=== PATIENT | female | born 1995 | race Caucasian/White ===

== ENCOUNTER 2018-10-16 22:00 | Emergency (ER) | payer OTHER ==
[~2018-10-16] VITALS: Ht 157.5 cm; Wt 63.5 kg
[2018-10-16 22:07] VITALS: BP 120/76
[2018-10-16] MEDS: LIDOCAINE 1% ***ER ONLY *** 10 MG/ML VIAL INJ ONE (23:55)
[2018-10-17] MEDS ORDERED: LIDOCAINE MPF 1% - 5 mL VIAL 5 ML ONE (00:11)
[2018-10-17] MEDS: BACITRACIN OINT 500 UNITS/GM PKT TP ONE (01:02)
[2018-10-17 01:14] VITALS: BP 120/76
== END 2018-10-17 01:14 | disposition home or self-care (01) ==
LOC: MED 22:00
DX: S01.511A Laceration without foreign body of lip, initial encounter (principal); F12.90 Cannabis use, unspecified, uncomplicated; Z88.0 Allergy status to penicillin; W54.0XXA Bitten by dog, initial encounter; Y93.89 Activity, other specified; Y92.89 Other specified places as the place of occurrence of the external cause; Y99.8 Other external cause status
CPT/HCPCS: 12011; 99283; J2001